=== PATIENT | male | born 1955 | race Caucasian/White ===

== ENCOUNTER → 2018-01-28 10:02 | Outpatient (CLI) | payer OTHER, MEDICARE, SELFPAY ==
--- NOTE | 2018-01-28 10:12 | RAD_ITS ---
STUDY: X-RAY CHEST REASON FOR EXAM: Male, 62 years old. Bronchitis TECHNIQUE: Frontal and lateral views of the chest COMPARISON: 03/18/2017 FINDINGS: There is stable linear opacity at the lung bases which may be due to scarring or atelectasis. The lungs are otherwise clear. There are no pleural effusions. There is no pneumothorax. The heart is normal in size. The visualized osseous structures are within normal limits. RAD/Chest PA and Lateral IMPRESSION: No acute thoracic pathology. Electronically Signed: Cristhian Nunez, at 18:29 EST Tel , Service support ,
== END ==
PROVIDERS: Family Provider Family Medicine; PCP Family Medicine; Visit Provider Family Medicine
DX: J20.9 Acute bronchitis, unspecified (principal)
CPT/HCPCS: 71046

== ENCOUNTER 2018-09-03 08:30 | Outpatient (RCR) | payer OTHER, MEDICARE, SELFPAY ==
--- NOTE | 2018-07-16 09:04 | HP.PTEVAL ---
Patient's Visit Information J CARLOS WEINER is a 62 year old M referred to Physical Therapy by DELBERT AARON with a diagnosis of s/p L DEBORAH. Date of Evaluation: 07/16/18 Physical Therapist: Dominic Means DPT, OC - Visit Plan Frequency: 2x /Week Duration: 4-6 Weeks Plan: 2x/week for 2 week water to teach hip strength, quad, HS and piri/glut stretches and hip flexor stretches. General sterength and progress to I as member. Then land based ex gym(if tolerates) vs mat ex for smae as above and may need scar massage. Avoid full hip flexion is patients precaution(full bending forward for 1 year.) - Subjective Subjective: May [address] Cali at [facility] in [place].Has rare muscle disease that disallows running adn jumping and hopping and was bedridden for years 2001. Polymyositis is the name of it. L TKA 2012 adn this hip on May 24. Not alot of pain, slight pain 1-2/10 much of time. Sleep is interrupted only if he does alot and gets tight. Lateral approach, no fully bending in standing, no other current precautions. Used walker for 4 weeks , last 3 weeks with the cane and goes without it at times. Can go further with it. Balance feels OK. Steps at home are challenging due to weakness from muscle disease. HEP SLR, AP, QS, GS, windshield wipers, HS, SAQ, standing at sink abd and ext sink squats, heel raises, stand knee flexion. Not employed. Hobbies: wants to bike ride, would love to play tennis, muscle disease gives breathing problems and OP also.(prednisone) - Pain L hip lateral Pain Intensity (Out of 10): 1 Pain Intensity Range: 0, 2 - Objective Ambulates with wide SHELBY and mild R trendelenberg. Safe with and without cane, more limp with out cane. Chair trasnfers are I with UE. Steps prefers to just use R but can use L and needs two UE. reflexes 2/3 in patella and achilles. Sensation WNL to gross light touch in LE. quads and HS are max tight L and mod on R. L 90/90 is -48 and quad is to 90 degrees prone.(had TKA). Hip AROM WFL but slow end flexion, ext is to neutral only, abd is 25. Strength in R hip 4/5 and L 3+ abd and ext adn flexion. Kneestrength 4/5 ext adn flexion B. Ankle strength 4+ B. Balance is good. - Goals Goal 1:: I approp pool and table or gym based HEP for gentle strength. Goal Time Frame: 4-6 Weeks Goal 2:: Able to rdie bike for 15 mi nutes without pain. Goal Time Frame: 4-6 Weeks Goal 3:: Tie shoes and dress self I Goal Time Frame: 4-6 Weeks Goal 4:: Pt feel 75% back to normal presurgery level. Goal Time Frame: 4-6 Weeks - Rehabilitation Potential Physical Therapy Diagnosis: s/p L DEBORAH, also has muscle disease and FM Rehabilitation Potential: Fair - Anticipated Interventions Patient/Client Instruction: Educate patient on: Condition, Plan of Care For the Purpose of:: To decrease pain, To increase ROM, To improve ability of physical actions for home/community/work/leisure Therapeutic Exercise to Include: Strength training, Flexibilty training, Gait and locomotor training, In an aquatic setting, Passive ROM, Active ROM For the Purpose of:: To decrease pain, To increase ROM, To increase tolerance to activity/condition/position, To improve performance and independence with ADL's, To improve ability of physical actions for home/community/work/leisure Manual Therapy Techniques to Include: Scar massage For the Purpose of:: To improve nutrient delivery to tissue Thank you for the opportunity to evaluate your patient. For Medicare and Medicare HMO plans, please review the plan of care and approve it. It will need to be FAXED BACK to us at [phone] for Medicare purposes. Please let me know if there are questions or concerns regarding this plan of care. Physician Signature: Date:
--- NOTE | 2018-08-17 14:07 | HP.PTREVAL ---
DELBERT AARON, It has been my pleasure to treat J CARLOS WEINER over the last 6 visits for s/p L DEBORAH. Please see the progress note below for an update on the physical therapy plan of care! Subjective: Doing OK, has been in the water regualrly and ready to start land exercises. Only did the Nustep one time. Objective/Function: VC needed for technique and set up on all exercises today. Tolerated well but shuolder ROM very limited due to tightness in shoulders making stretch and pull down transiently difficult but no worse after session. Plan Plan: 2x/week for 4 weeks for education and progression to I with today's ex and gradually add abs and back ext and chest press/shoulder press as tolerates. Teach set up and progression. Main goal to gain I with gym ex without worsening symptoms. Fair prognosis. Goals Goal 1:: I approp pool and table or gym based HEP for gentle strength. Goal Time Frame: 4-6 Weeks Goal Progress: pool, now work on gym Goal 2:: Able to rdie bike for 15 mi nutes without pain. Goal Time Frame: 4-6 Weeks Goal Progress: Progressing Goal 3:: Tie shoes and dress self I Goal Time Frame: 4-6 Weeks Goal Progress: Goal Met Goal 4:: Pt feel 75% back to normal presurgery level. Goal Time Frame: 4-6 Weeks Goal Progress: Progressing Anticipated Interventions Patient/Client Instruction: Educate patient on: Condition, Plan of Care For the Purpose of:: To decrease pain, To increase ROM, To improve ability of physical actions for home/community/work/leisure Therapeutic Exercise to Include: Strength training, Flexibilty training, Gait and locomotor training, In an aquatic setting, Passive ROM, Active ROM For the Purpose of:: To decrease pain, To increase ROM, To increase tolerance to activity/condition/position, To improve performance and independence with ADL's, To improve ability of physical actions for home/community/work/leisure Manual Therapy Techniques to Include: Scar massage For the Purpose of:: To improve nutrient delivery to tissue Please do not hesitate to contact me at [phone] by phone or if you have questions or concerns regarding this new plan of care! Sincerely, Dominic Means, DPT, OC
--- NOTE | 2018-12-03 13:35 | HP.PT.NRP ---
HP - Discharge Summary (1) - Patient Information J CARLOS WEINER was seen in my office for initial evaluation on 07/16/18. The following Plan of Care was established for this patient: Initial Frequency: 2x /Week Initial Duration: 4-6 Weeks - Anticipated Interventions Patient/Client Instruction: Educate patient on: Condition, Plan of Care For the Purpose of:: To decrease pain, To increase ROM, To improve ability of physical actions for home/community/work/leisure Therapeutic Exercise to Include: Strength training, Flexibilty training, Gait and locomotor training, In an aquatic setting, Passive ROM, Active ROM For the Purpose of:: To decrease pain, To increase ROM, To increase tolerance to activity/condition/position, To improve performance and independence with ADL's, To improve ability of physical actions for home/community/work/leisure Manual Therapy Techniques to Include: Scar massage For the Purpose of:: To improve nutrient delivery to tissue This patient was last seen in our office 09/03/18. Pertinent comments regarding their Physical therapy will appear below: Pt seen 11 visits POC and wished to continue on his own after that time and following up a few months later. He has neglected to schedule that f/u visit. I have seen him in the gym a few times since workign out and stating he is doing well. i will discontinue due to nonattendance. At this point I will be discontinuing this patient from physical therapy. I would be happy to see this patient again in the future if found appropriate by the physician. Thank you! Dominic Means, DPT, OCS, CSCS
== END 2018-09-03 19:00 | disposition home or self-care (01) ==
LOC: PT 08:30
PROVIDERS: Family Provider Family Medicine; PCP Family Medicine
DX: Z96.642 Presence of left artificial hip joint (principal)
CPT/HCPCS: 97110; 97113; 97162; 97530

== ENCOUNTER → 2021-10-28 17:36 | Outpatient (CLI) | payer OTHER, MEDICARE, SELFPAY | PROVIDERS: PCP Family Medicine; Referring Provider Nurse Practitioner Family; Visit Provider Nurse Practitioner Family | DX: Z20.822 Contact with and (suspected) exposure to COVID-19 (principal) | CPT/HCPCS: 87635; U0005; U0003 ==

== ENCOUNTER 2022-01-21 15:55 | Outpatient (CLI) | payer OTHER, MEDICARE, SELFPAY ==
--- NOTE | 2022-01-21 16:01 | RAD_ITS ---
STUDY: X-RAY CHEST REASON FOR EXAM: Male, 66 years old. CHEST PAIN CHRONIC AIRWAY DISEASE TECHNIQUE: XR Chest 2 Views COMPARISON: Jan 28 2018 10:14am FINDINGS: There are bilateral infiltrates. Normal size heart. Normal mediastinum and dariana. Normal visualized pulmonary arteries. There is atherosclerotic calcification of the aortic arch with tortuosity. There are diffuse degenerative changes of the visualized thoracic spine. There is degenerative osteoarthritis of the bilateral shoulders. There is no demonstrated abnormality of the visualized soft tissue structures of the upper abdomen. RAD/Chest PA and Lateral IMPRESSION: Bilateral pneumonia. Electronically Signed: Luis Polo MD at 16:16 EST ,
== END 2022-01-21 23:59 | disposition home or self-care (01) ==
PROVIDERS: PCP Family Medicine; Referring Provider Family Medicine; Visit Provider Family Medicine
DX: J44.9 Chronic obstructive pulmonary disease, unspecified (principal)
CPT/HCPCS: 71046

== ENCOUNTER 2022-01-30 14:51 | Outpatient (CLI) | payer OTHER, MEDICARE, SELFPAY ==
[2022-01-30 17:59] LABS: Absolute Lymphocyte Count 1.55 X10^3/uL (0.83-4.51); Basophil# 0.02 X10^3/uL; Basophil% 0.3 % (0-1); Eosinophils% 1.6 % (0-5); Hematocrit 43.7 % (40-54); Lymphocyte # 1.55 X10^3/ul (0.83-4.51); Mean Corpuscular Volume 96.7 fL (80-94); Monocyte# 0.53 X10^3/uL; Monocyte% 8.5 % (0-10); NRBC Flagged by Analyzer 0 % (0-5); Neutrophil # 3.99 X10^3/uL (2.7-7.7); Neutrophil % 64.4 % (47-70); Platelet Count 412 K/mm3 (150-450); RBC Distribution Width CV 15.2 % (11.6-14.6); RBC Distribution Width SD 53.9 fl (35.1-43.9); Red Blood Count 4.52 M/mm3 (4.6-6.2); White Blood Count 6.2 K/mm3 (4.4-11.0)
[2022-01-30 18:10] LABS: Erythrocyte Sedimentation Rate 36 mm/hr (0-20)
[2022-01-30 18:34] LABS: ALB/GLOB Ratio 0.7 RATIO (0.9-2.4); AST(SGOT) 24 U/L (15-37); Alanine Aminotransfer ALT/SGPT 23 U/L (16-61); Albumin, Serum 3.2 g/dL (3.2-5.0); Alkaline Phosphatase 77 U/L (45-117); Anion Gap 6 (5-15); BUN 12 mg/dL (7-18); Calcium,Total 8.8 mg/dL (8.5-10.1); Chloride 105 mmol/L (98-107); EST Glomerular Filtration Rate 103 mL/min (>60); Est Glom Filt Rate - Afr Amer 125 mL/min (>60); Globulin 4.4 g/dL (2.2-4.2); Glucose 103 mg/dL (74-106); Protein, Total 7.6 g/dL (6.4-8.2); Sodium Level 138 mmol/L (136-145)
== END 2022-01-30 23:59 | disposition home or self-care (01) ==
PROVIDERS: PCP Family Medicine; Referring Provider Family Medicine; Visit Provider Family Medicine
DX: M33.20 Polymyositis, organ involvement unspecified (principal); D89.89 Other specified disorders involving the immune mechanism, not elsewhere classified; J44.9 Chronic obstructive pulmonary disease, unspecified
CPT/HCPCS: 36415; 80053; 85025; 85652; 86140

== ENCOUNTER → 2022-04-08 | Outpatient (CLI) | payer OTHER, MEDICARE, SELFPAY ==
[2022-04-08 17:36] LABS: Absolute Lymphocyte Count 2.16 X10^3/uL (0.83-4.51); Absolute Neutrophil Count 3.4 X10^3/uL (2.0-7.7); Basophil# 0.03 X10^3/uL; Basophil% 0.5 % (0-1); Eosinophil# 0.16 X10^3/uL; Eosinophils% 2.5 % (0-5); Hematocrit 46.6 % (40-54); Hemoglobin 14.9 g/dL (13.0-16.5); Lymphocyte # 2.16 X10^3/ul (0.83-4.51); Lymphocyte % 33.2 % (19-41); Mean Corpuscular Hgb 31.3 pg (27.0-32.0); Mean Corpuscular Volume 97.9 fL (80-94); Mean Platelet Vol. 9.4 fl (6.2-12.0); Monocyte# 0.79 X10^3/uL; Monocyte% 12.1 % (0-10); NRBC Flagged by Analyzer 0 % (0-5); Neutrophil # 3.35 X10^3/uL (2.7-7.7); Neutrophil % 51.4 % (47-70); Platelet Count 277 K/mm3 (150-450); RBC Distribution Width CV 14.6 % (11.6-14.6); RBC Distribution Width SD 53.1 fl (35.1-43.9); Red Blood Count 4.76 M/mm3 (4.6-6.2); White Blood Count 6.5 K/mm3 (4.4-11.0)
[2022-04-08 17:50] LABS: Erythrocyte Sedimentation Rate 40 mm/hr (0-20)
[2022-04-08 18:29] LABS: Vitamin B12 418 pg/mL (211-911)
[2022-04-08 18:43] LABS: ALB/GLOB Ratio 0.9 RATIO (0.9-2.4); AST(SGOT) 28 U/L (15-37); Alanine Aminotransfer ALT/SGPT 24 U/L (16-61); Albumin, Serum 3.9 g/dL (3.2-5.0); Alkaline Phosphatase 80 U/L (45-117); Anion Gap 6 (5-15); BUN 11 mg/dL (7-18); BUN/Creat Ratio 13.5 RATIO (10-20); Calcium,Total 9.4 mg/dL (8.5-10.1); Chloride 103 mmol/L (98-107); Creatinine, Serum 0.82 mg/dL (0.70-1.30); EST Glomerular Filtration Rate 101 mL/min (>60); Est Glom Filt Rate - Afr Amer 122 mL/min (>60); Ferritin 133 ng/mL (26-388); Globulin 4.3 g/dL (2.2-4.2); Glucose 86 mg/dL (74-106); High Density Lipoprotein 31 mg/dL; PSA,Total - Annual Screen 0.54 ng/mL (0.00-4.00); Potassium 4.1 mmol/L (3.5-5.1); Protein, Total 8.2 g/dL (6.4-8.2); Sodium Level 137 mmol/L (136-145)
[2022-04-10 16:38] LABS: LDL, Direct 120295 101 mg/dL (0-99)
== END | disposition home or self-care (01) ==
LOC: MFPLAB 16:29
PROVIDERS: PCP Family Medicine; Visit Provider Family Medicine
DX: Z00.00 Encounter for general adult medical examination without abnormal findings (principal); M33.20 Polymyositis, organ involvement unspecified; K90.0 Celiac disease; Z12.5 Encounter for screening for malignant neoplasm of prostate
CPT/HCPCS: 36415; 80053; 82607; 82728; 82746; 83718; 83721; 84153; 84443; 85025; 85652; 86140; G0103

== ENCOUNTER → 2023-05-07 | Outpatient (CLI) | payer OTHER, MEDICARE, SELFPAY ==
--- NOTE | 2023-05-07 13:59 | RAD_ITS ---
STUDY: X-RAY - LUMBOSACRAL SPINE REASON FOR EXAM: Male, 67 years old. R hip pain and paresthesia TECHNIQUE: 6 view(s) of the lumbosacral spine were obtained. This includes flexion extension views. COMPARISON: None FINDINGS: Normal lumbar lordosis. Mild dextroconvex scoliosis. There is normal alignment of the vertebrae. There is multilevel endplate spondylosis of the lumbar vertebrae. There is multi-level degenerative disc disease with multi-level disc space narrowing. Limited range of motion. No evidence of instability. Oblique projections demonstrate normal pars bilaterally. Normal bilateral sacral ala, sacroiliac joints, and visualized sacrum. Normal visualized soft tissue structures. RAD/L/S Spine w Bend Min 6 Vw IMPRESSION: Limited range of motion. Multilevel degenerative disc disease. Electronically Signed: Faraz Costa MD at 22:01 EDT ,
--- NOTE | 2023-05-07 14:02 | RAD_ITS ---
STUDY: X-RAY - PELVIS AND RIGHT HIP REASON FOR EXAM: Male, 67 years old. pain in right hip TECHNIQUE: 3 views of the pelvis and hip. COMPARISON: None. FINDINGS: There is a non-specific bowel gas pattern. Normal visualized soft tissue structures. Left total hip arthroplasty. Normal bilateral iliac wings, sacroiliac joints and visualized sacrum. Normal bilateral superior and inferior pubic rami. Normal pubic symphysis. Normal bilateral ischial tuberosities. Disc space narrowing lumbar spine. Bony ankylosis sacroiliac joint inferiorly. Normal visualized femoral head. Normal acetabulum. Normal hip joint. RAD/HIP, UNI W/ Pelvis 2-3 Views IMPRESSION: Ankylosis of the sacroiliac joints. Left total hip arthroplasty. Right hip normal. Electronically Signed: Faraz Costa MD at 22:07 EDT ,
== END | disposition home or self-care (01) ==
LOC: MTRAD 13:59
PROVIDERS: PCP Family Medicine; Referring Provider Family Medicine; Visit Provider Family Medicine
DX: M25.551 Pain in right hip (principal); R20.2 Paresthesia of skin; R20.0 Anesthesia of skin
CPT/HCPCS: 72114; 73502

== ENCOUNTER 2023-05-14 08:39 | Outpatient (RCR) | payer OTHER, MEDICARE, SELFPAY ==
--- NOTE | 2023-05-14 18:51 | HP.PTEVAL_ITS ---
Patient's Visit Information J CARLOS WEINER is a 67 year old M referred to Physical Therapy by Dr. Angel Nieto MD with a diagnosis of RIGHT HIP PAIN ,HIP FLEXORS TIGHTNESS. Date of Evaluation: 05/14/23 Physical Therapist: Alan Christiansen PT, Cert MDT, OCS - Visit Plan Frequency: 2x /Week Duration: 4 Weeks Plan: PATIENT HAS AUTOIMMUNE CONDTION THAT AFFECST MUSCLE( POLYMYOSITIS). PT INTERVTIONS ROM /FLEXABLITY HIP- FLEXORS/QUADS ,RIGHT QUADS/HAMS/HIP STREN GTHENING MANUAL THERAPY /STICK ,FUNCTIONAL STRENGTHENING AND MODALTIES PRN - Subjective This 67 y/o male presents to physical therapy therapy with right hip pain . Patient has had right hip flexor pain past 2 months which progressively worse past ~ 2weeks . Patient seen Dr had x-rays -. Patient has autoimmune disease called polymyositis 2001. Patient plans to see Principal Research Economist for inflammation rate. Patient pain located right groin and quads. Aggravating factors walking/standing ,activity ,sitting in car .Patient pain affects QOL and function. Patient c/o paresthesia/tingling. Patient pain affects sleeping. Patient has pain stairs one steps a TIME. Patient was working out at the gym . Patient has not seen RA for awhile. SOCIAL: . VOCATION: disability - Pain Right Hip Pain Intensity (Out of 10): 9 Pain Intensity Range: 10 Comment: thight - Objective POSTURE: mild forward posture. NEURO: denies paresthesia/tingling ,L3-4,L4-5 .L5-S1 1/3. PALPATION: tender ASIS ,rectus femoris. GAIT: Ambulates with antalgic gait right side slow jeffrey. FLEXABILITY: hip flexors -quads mod /severe tight ,piriformis mod right. MMT:( peak force) quads 0 ,hamstrings 17.8 , hip abduction 18.8 ,hip extension 0 ,ankle 4/5. LUMBAR ROM: flexion mod loss extension mod loss - Special Tests L/S Slump test left side: Negative L/S Slump test right side: Negative L/S Left Straight Leg Raise: Negative R Hip Scour: Positive R Hip WALT - Intraarticular Pathology: Negative R Hip FADDIR - Labrum: Negative R Hip Trendelenberg - Glut Medius: Positive - Balance/Special Test Scores Lower Extremity Functional Score: 29 - Goals Goal 1:: Patient to be I with HEP Goal Time Frame: 4-6 Weeks Goal 2:: Patient to improve gait pattern by 80% improve function with gait with less antalgic gait. Goal Time Frame: 4-6 Weeks Goal 3:: Patient to improve peak force quads/hamstrings hip by 10 points to improve Goal Time Frame: 4-6 Weeks Goal 4:: Patient to improve LES score by 5-10 points to improve function and gait Goal Time Frame: 4-6 Weeks Goal 5:: Patient to demonstrate 50% improvement with increase function and less pain. Goal Time Frame: 4-6 Weeks - Rehabilitation Potential Physical Therapy Diagnosis: Patient has right hip pain with tenderness rectus femoris ASIS , weakness right quads/hams ,decrease gait , ,decrease hip ROM thus benefit from skilled PT Rehabilitation Potential: Good - Anticipated Interventions Patient/Client Instruction: Educate patient on: Condition, Plan of Care For the Purpose of:: To decrease pain, To increase ROM, To improve muscle performance and motor function, To increase tolerance to activity/condition/position, To improve ability of physical actions for home/community/work/leisure, To improve health of tissue, To decrease soft tissue restriction, To increase flexibility/ROM, To prevent re-injury Therapeutic Exercise to Include: Strength training, Endurance training, Balance training, Postural training, Flexibilty training, Active ROM, Dynamic Lumbar Stabilization For the Purpose of:: To decrease pain, To increase ROM, To improve muscle performance and motor function, To increase tolerance to activity/condition/position, To decrease level of supervision to perform tasks, To improve ability of physical actions for home/community/work/leisure, To improve health of tissue, To increase flexibility/ROM, To improve endurance Thank you for the opportunity to evaluate your patient. For Medicare and Medicare HMO plans, please review the plan of care and approve it. It will need to be FAXED BACK to us at [phone] for Medicare purposes. For Medicare only, by signing this I certify the plan of care. Please let me know if there are questions or concerns regarding this plan of care. Physician Signature: Date:
--- NOTE | 2023-07-24 07:41 | HP.PT.NRP ---
Patient Information Patient Information: J CARLOS WEINER was seen in my office for initial evaluation on 05/14/23. The following Plan of Care was established for this patient: POC Established Initial Frequency: 2x /Week Initial Duration: 4 Weeks Anticipated Interventions Patient/Client Instruction: Educate patient on: Condition and Plan of Care For the Purpose of:: To decrease pain, To increase ROM, To improve muscle performance and motor function, To increase tolerance to activity/condition/position, To improve ability of physical actions for home/community/work/leisure, To improve health of tissue, To decrease soft tissue restriction, To increase flexibility/ROM and To prevent re-injury Therapeutic Exercise to Include: Strength training, Endurance training, Balance training, Postural training, Flexibilty training, Active ROM and Dynamic Lumbar Stabilization For the Purpose of:: To decrease pain, To increase ROM, To improve muscle performance and motor function, To increase tolerance to activity/condition/position, To decrease level of supervision to perform tasks, To improve ability of physical actions for home/community/work/leisure, To improve health of tissue, To increase flexibility/ROM and To improve endurance Last Seen Last Seen: This patient was last seen in our office . Pertinent comments regarding their Physical therapy will appear below: Patient was seen for PT Evaluation for HEP thus d/c At this point I will be discontinuing this patient from physical therapy. I would be happy to see this patient again in the future if found appropriate by the physician. Thank you! Alan Christiansen, PT, Cert MDT, OCS Balance/Gait/Functional tests Balance/Special Test Scores Lower Extremity Functional Score: 29
== END 2023-05-14 19:00 | disposition home or self-care (01) ==
LOC: PT 08:39
PROVIDERS: PCP Family Medicine; Referring Provider Family Medicine; Visit Provider Family Medicine
DX: M25.551 Pain in right hip (principal); M25.651 Stiffness of right hip, not elsewhere classified; B36.9 Superficial mycosis, unspecified
CPT/HCPCS: 97110; 97162

== ENCOUNTER → 2023-09-16 | Outpatient (CLI) | payer OTHER, MEDICARE, SELFPAY ==
--- NOTE | 2023-09-16 12:40 | RAD_ITS ---
INDICATION: PNEUMONIA EXAMINATION/TECHNIQUE: X-RAY - XR Chest 2 Views COMPARISON: 01/21/2022. FINDINGS: Increased interstitial markings. Bibasilar atelectasis. Tortuous and calcified thoracic aorta. The heart is not enlarged. No pleural effusion or pneumothorax. Degenerative changes of the thoracic spine. RAD/Chest PA and Lateral IMPRESSION: Increased interstitial markings may represent edema and/or infection. Electronically Signed: Sb Wiley MD at 20:58 EDT ,
[2023-09-16 16:03] LABS: Absolute Neutrophil Count 7.7 X10^3/uL (2.0-7.7); Basophil# 0.02 X10^3/uL; Basophil% 0.2 % (0-1); Eosinophil# 0.02 X10^3/uL; Eosinophils% 0.2 % (0-5); Hematocrit 41.6 % (40-54); Hemoglobin 13.5 g/dL (13.0-16.5); Mean Corp Hgb Conc 32.5 g/dL (32-36); Mean Corpuscular Hgb 31.6 pg (27.0-32.0); Mean Corpuscular Volume 97.4 fL (80-94); Mean Platelet Vol. 11.1 fl (6.2-12.0); Monocyte# 1.43 X10^3/uL; Monocyte% 13.4 % (0-10); NRBC Flagged by Analyzer 0 % (0-5); Neutrophil # 7.68 X10^3/uL (2.7-7.7); Neutrophil % 71.8 % (47-70); Platelet Count 214 K/mm3 (150-450); RBC Distribution Width CV 14.6 % (11.6-14.6); Red Blood Count 4.27 M/mm3 (4.6-6.2); White Blood Count 10.7 K/mm3 (4.4-11.0)
== END | disposition home or self-care (01) ==
PROVIDERS: PCP Family Medicine; Referring Provider Family Medicine; Visit Provider Family Medicine
DX: J18.9 Pneumonia, unspecified organism (principal)
CPT/HCPCS: 36415; 71046; 85025

== ENCOUNTER → 2025-01-02 | Outpatient (CLI) | payer MEDICARE, SELFPAY ==
--- NOTE | 2025-01-02 17:16 | RAD_ITS ---
PROCEDURE: CHEST PA AND LATERAL REASON FOR EXAM: Pneumonia. Cough. TECHNIQUE: Frontal and lateral views of the chest. COMPARISON: Chest x-ray from 09/16/2023. FINDINGS: Cardiac size is within normal limits. There are chronic interstitial lung markings greatest in the bibasilar lungs likely related to fibrosis. No acute consolidation, pleural effusion, or pneumothorax is present. RAD/Chest PA and Lateral IMPRESSION: 1. No definite acute cardiopulmonary process. 2. Chronic interstitial lung markings greatest in the bibasilar lungs likely re lated to fibrosis. [facility]
== END | disposition home or self-care (01) ==
PROVIDERS: PCP Family Medicine; Referring Provider Family Medicine; Visit Provider Family Medicine
DX: J15.9 Unspecified bacterial pneumonia (principal)
CPT/HCPCS: 71046

== ENCOUNTER → 2025-02-27 | Outpatient (CLI) | payer MEDICARE, SELFPAY ==
[2025-02-27 19:06] LABS: Cholesterol 161 mg/dL (<=200); High Density Lipoprotein 31 mg/dL; Low Density Lipoprotein Calc. 108 mg/dL; Triglycerides 108 mg/dL; Very Low Density Lipoprotein 22 mg/dL (5-40); cholesterol:hdl ratio screen 5.13
== END | disposition home or self-care (01) ==
LOC: MTLAB 14:52
PROVIDERS: PCP Family Medicine; Referring Provider Family Medicine; Visit Provider Family Medicine
DX: Z13.220 Encounter for screening for lipoid disorders (principal)
CPT/HCPCS: 36415; 80061

== ENCOUNTER 2025-04-24 14:08 | Emergency (ER) | payer MEDICARE, SELFPAY ==
[2025-04-24 14:09] VITALS: BP 141/83; PULSE 79; RESP 19; TEMP 36.7; O2SAT 98; BMI 28.4
[2025-04-24 14:29] VITALS: O2SAT 97
--- NOTE | 2025-04-24 14:29 | EKG12_ITS ---
Test Reason : CHEST PAIN Blood Pressure : */* mmHG Vent. Rate : 74 BPM Atrial Rate : 74 BPM P-R Int : 138 ms QRS Dur : 90 ms QT Int : 390 ms P-R-T Axes : 58 -13 63 degrees QTcB Int : 432 ms Normal sinus rhythm Normal ECG Confirmed by Soto Navarrete ([id number]), web content editor DANYELLE MC ([id number]) on 04/25/2025 9:56:34 AM Referred By: Confirmed By: Soto Navarrete
--- NOTE | 2025-04-24 14:29 | ED.VIS.CHEST ---
HPI History of Present Illness Chief Complaint: Chest Other Narrative Narrative: 69-year-old male presents to the emergency department with concerns for chest discomfort he is having for the last month. Initially it started out but it would only last approximately 30 minutes. Over the last few days, especially today it lasted longer, for the last 3 hours. He does not describe it as a pressure sensation or an elephant sitting on his chest, but more of a golf ball sized lump in the middle of his chest. No recent leg swelling. No exacerbating or alleviating factors. He was slightly nauseated today but no vomiting. No diaphoresis. Called his primary care provider's office was told to come to the emergency department for evaluation. He denies any DVT or PE risk factors. He thought that maybe it was related to a new stretching routine which places hands over his head which causes discomfort in the middle of his chest, but he stopped doing those on , 4 days ago, that did not seem to relieve the chest discomfort that he has been experiencing. PFSH PFS Home Medications ?Medication ?Instructions ?Recorded ?Last Taken ?Type Lactobacillus acidophilus 10 100 mmu cells PO DAILY 04/24/25 04/23/25 History billion cell capsule (NewFlora) cholecalciferol (vitamin D3) 25 25 mcg PO DAILY 04/24/25 04/23/25 History mcg (1,000 unit) capsule digestive enzymes (Digestive 1 cap PO DAILY 04/24/25 04/23/25 History Wellness capsule) multivitamin (Daily Multi-Vitamin 1 tab PO DAILY 04/24/25 04/23/25 History tablet) vitamin K2 100 mcg capsule 100 mcg PO DAILY 04/24/25 04/23/25 History Allergy/AdvReac Type Severity Reaction Status Date / Time Penicillins Allergy Anaphylaxis Verified 04/24/25 14:12 Sulfa (Sulfonamide Allergy Anaphylaxis Verified 04/24/25 14:12 Antibiotics) Social History Smoking Status: Never smoker ROS ROS ED ROS Narrative Constitutional: No fever, no chills. Cardiovascular: Positive for midsternal chest discomfort/chest pain. No palpitations. No pedal edema. Respiratory: No cough, no shortness of breath. Abdominal: No abdominal pain. Positive nausea. No vomiting. Genitourinary: No dysuria. No hematuria. Musculoskeletal: No myalgias. No arthralgias. EXAM Physical Exam Narrative Exam Narrative: Afebrile. Vital signs noted. Nontoxic-appearing. Cardiovascular examination reveals a regular rate and rhythm. Lungs are clear to auscultation bilaterally. No crepitance of chest. Abdomen is soft nontender without guarding or rebound. Positive bowel sounds. Neurological examination nonfocal, nonlateralizing. No pedal edema bilaterally. Const Vital Signs: 04/24/25 14:09 04/24/25 14:29 04/24/25 14:57 Temperature 98.1 F Temperature Source Oral Pulse Rate 79 Respiratory Rate 19 H Respiratory Effort Normal Non-Labored Respiratory Pattern Normal Blood Pressure 141/83 H Blood Pressure Mean 102 Pulse Ox 98 97 Oxygen Delivery Method Room Air Room Air 04/24/25 16:38 04/24/25 18:00 Temperature Temperature Source Pulse Rate 74 73 Respiratory Rate 25 H 26 H Respiratory Effort Respiratory Pattern Blood Pressure 104/64 100/79 Blood Pressure Mean 77 86 Pulse Ox 98 99 Oxygen Delivery Method Room Air Room Air MDM MDM MDM Narrative Medical decision making narrative: The differential diagnosis includes but not limited to ACS versus pulmonary embolism versus pneumonia versus pneumothorax versus esophageal spasm. He may also have more chest wall pain, however it is not reproducible. Chest pain workup was pursued including D-dimer. EKG obtained and interpreted by myself independently as normal sinus rhythm at 74 bpm without ectopy or acute ST changes. No STEMI. I reviewed his laboratory work and he has a normal white count of 5.0 with hemoglobin normal at 16.0, hematocrit 48.1, platelet count 210. BMP is grossly unremarkable except for glucose of 500 and a normal anion gap of 12. Initial high-sensitivity troponin is 11. D-dimer was elevated at 0.92. CTA was obtained and radiology report reviewed. While there is no evidence of a pulmonary embolism, he does have fibrotic changes at the bilateral lower bases. I do not feel that this is an infectious process as he has no elevated white count, he is not hypoxic, and he has not been febrile. Chest x-ray 1 view had been obtained and interpreted by myself independently. I see no evidence of pneumonia, or consolidation. He does have blunting of the bilateral costophrenic angles. I reviewed the radiology report which confirms my independent interpretation and notes the chronic changes. Repeat examination shows him resting comfortably on the cot. As long as the second troponin shows flat enzymes, I do feel he can be discharged to follow-up with primary care provider for outpatient stress testing and further workup. Repeat enzyme is also negative at 8. At this point in time I feel he can be discharged to follow-up. Return instructions to the emergency department reviewed. Disposition is discharged home in stable condition. History & Record Review Discussion w/independent historian: Patient Lab Data Attestation: I reviewed the patient's lab results. Labs: Laboratory Results - last 24 hr 04/24/25 04/24/25 14:50 17:35 WBC 5.0 RBC 4.94 Hgb 16.0 Hct 48.1 MCV 97.4 H MCH 32.4 H MCHC 33.3 RDW Std Deviation 48.5 H RDW Coeff of [place] 13.5 Plt Count 210 MPV 9.4 Immature Gran % (Auto) 0.400 Neut % (Auto) 53.6 Lymph % (Auto) 28.2 Sunflower % (Auto) 11.2 H Eos % (Auto) 6.0 H Baso % (Auto) 0.6 Absolute Neuts (auto) 2.7 Absolute Lymphs (auto) 1.41 Nucleated RBC % 0 D-Dimer Quant (PE/DVT) 0.92 H* Sodium 137 Potassium 4.1 Chloride 102 Carbon Dioxide 23.6 Anion Gap 12 BUN 14 Creatinine 0.84 Estim Creat Clear Calc 99.16 Est GFR (MDRD) Non-Af 96 BUN/Creatinine Ratio 16.6 Glucose 100 H Calcium 9.5 Troponin T High Sens 11 Troponin T Hi Sens 2 Hr 8 Radiography Diagnostic Testing: Clinical Impression(s) from Imaging Studies Chest X-Ray 04/24/25 15:11 IMPRESSION: Chronic lung changes blunting of the costophrenic angles appear similar to the prior study. No acute pneumonic process is identified. No pleural effusion is clearly seen. No pneumothorax is evident. The cardiomediastinal silhouette is stable, without evidence of cardiomegaly. No interval osseous change is noted. Reading Location: [address] Chest CTA 04/24/25 15:48 IMPRESSION: No pulmonary embolism. Interstitial thickening in the lung bases and bronchiectasis suggestive of fibrotic change. Superimposed infection can not be excluded. Enlarged/prominent mediastinal and bilateral perihilar lymph nodes. Reading Location: [place] [address] Discharge Plan Triage Chief Complaint: Chest Other ED Provider: Bernardo Maradiaga Dx/Rx/DC Orders Clinical Impression: Chest discomfort, Elevated d-dimer Instructions: ED Chest Pain, Uncertain Cause Prescriptions: No Action multivitamin [Daily Multi-Vitamin] Tablet 1 tab PO DAILY cholecalciferol (vitamin D3) 25 mcg (1,000 unit) capsule 25 mcg PO DAILY NewFlora 10 billion cell capsule 100 mmu cells PO DAILY vitamin K2 100 mcg capsule 100 mcg PO DAILY Digestive Wellness Capsule 1 cap PO DAILY Rx Instructions: administer with food; swallow whole; do not crush/chew/dissolve/break/cut Primary Care Provider: Dominic Joyce Referrals: Dominic Joyce MD [Primary Care Provider] - 3-5 Days if not improving Activity Restrictions/Additional Instructions: Follow-up with your primary care provider. You may still require outpatient stress testing for your chest discomfort. Return to the emergency department with new or worsening symptoms. Print Language: Amharic Disposition Disposition: Home, Self Care
[2025-04-24 15:10] LABS: Absolute Lymphocyte Count 1.41 X10^3/uL (0.83-4.51); Absolute Neutrophil Count 2.7 X10^3/uL (2.0-7.7); Basophil# 0.03 X10^3/uL; Basophil% 0.6 % (0-1); Hematocrit 48.1 % (40-54); Lymphocyte # 1.41 X10^3/ul (0.83-4.51); Lymphocyte % 28.2 % (19-41); Mean Corp Hgb Conc 33.3 g/dL (32-36); Mean Corpuscular Hgb 32.4 pg (27.0-32.0); Mean Corpuscular Volume 97.4 fL (80-94); Mean Platelet Vol. 9.4 fl (6.2-12.0); Monocyte# 0.56 X10^3/uL; Monocyte% 11.2 % (0-10); NRBC Flagged by Analyzer 0 % (0-5); Neutrophil # 2.68 X10^3/uL (2.7-7.7); Neutrophil % 53.6 % (47-70); Platelet Count 210 K/mm3 (150-450); RBC Distribution Width CV 13.5 % (11.6-14.6); RBC Distribution Width SD 48.5 fl (35.1-43.9); Red Blood Count 4.94 M/mm3 (4.6-6.2)
--- NOTE | 2025-04-24 15:11 | RAD_ITS ---
PROCEDURE: CHEST 1 VIEW (PORTABLE) 04/24/2025 REASON FOR EXAM: CHEST PAIN TECHNIQUE: Frontal view of the chest. COMPARISON: Chest x-ray of 01/02/2025. RAD/Chest 1 View (Portable) IMPRESSION: Chronic lung changes blunting of the costophrenic angles appear similar to the prior study. No acute pneumonic process is identified. No pleural effusion is clearly seen. No pneumothorax is evident. The cardiomediastinal silhouette is stable, without evidence of cardiomegaly. No interval osseous change is noted. Reading Location: [id number]
[2025-04-24 15:36] LABS: Anion Gap 12 (5-15); BUN 14 mg/dL (4-19); BUN/Creat Ratio 16.6 RATIO (10-20); Calcium,Total 9.5 mg/dL (7.6-11.0); Carbon Dioxide 23.6 mmol/L (21.0-32.0); Chloride 102 mmol/L (98-108); Creatinine, Serum 0.84 mg/dL (0.70-1.20); EST Glomerular Filtration Rate 96 (>60); Estimated Creatinine Clearance 99.16 ml/min (50-250); Glucose 100 mg/dL (70-99); Potassium 4.1 mmol/L (3.3-5.1); Sodium Level 137 mmol/L (133-145); Troponin T High Sensitivity 11 ng/L (<=22)
[2025-04-24 15:44] LABS: D-Dimer Quantitative (DVT/PE) 0.92 FEU/ug/m (0.27-0.49)
--- NOTE | 2025-04-24 15:48 | CT_ITS ---
PROCEDURE: CTA CHEST W/WO CONTRAST 04/24/2025 REASON FOR EXAM: ELEVATED D-DIMER TECHNIQUE: CTA axial imaging of the chest with intravenous contrast. Multiplanar and multisequence images were obtained. One or more dose reduction techniques were used (e.g., Automated exposure control, adjustment of the mA and/or kV according to patient size, use of iterative reconstruction technique). CONTRAST: Isovue 370 VOLUME: 100 mL. RADIATION DOSE SUMMARY: CTDlvol: 9.50+ 12.95 mGy DLP: 494.06 mGycm COMPARISON: None. FINDINGS: The peripheral soft tissues unremarkable. Degenerative changes of the spine. The thyroid is unremarkable. Normal caliber esophagus. No acute upper abdominal abnormalities. The thoracic aorta is normal in caliber. Prominent/enlarged mediastina and bilateral perihilar lymph nodes. For instance a paratracheal lymph node measures 11 mm (series 2, image 166 of [id number]). The heart is normal in size. No pericardial effusion. No pulmonary artery filling defects to the subsegmental level to suggest pulmonary emboli. Reticular interstitial thickening in the lung bases with local bronchiectasis suggestive of fibrotic change. Superimposed infection can not be excluded. CT/CTA Chest W/WO Contrast IMPRESSION: No pulmonary embolism. Interstitial thickening in the lung bases and bronchiectasis suggestive of fibr otic change. Superimposed infection can not be excluded. Enlarged/prominent mediastinal and bilateral perihilar lymph nodes. Reading Location: [place] [id number]
[2025-04-24 16:38] VITALS: BP 104/64; PULSE 74; RESP 25; O2SAT 98
[2025-04-24 18:00] VITALS: BP 100/79; PULSE 73; RESP 26; O2SAT 99
[2025-04-24 18:03] LABS: Troponin T High Sens 2 HR 8 ng/L (<=22)
[2025-04-24 18:20] VITALS: BP 100/79; PULSE 73; RESP 26; TEMP 36.7; O2SAT 99
== END 2025-04-24 18:35 | disposition home or self-care (01) ==
PROVIDERS: Emergency Provider Emergency Medicine; PCP Family Medicine; Visit Provider Emergency Medicine
DX: R07.89 Other chest pain (principal); R79.89 Other specified abnormal findings of blood chemistry; R11.0 Nausea
CPT/HCPCS: 71045; 71275; 80048; 84484; 85025; 85379; 93005; 99283; Q9967